=== PATIENT | female | born 1950 | race Caucasian/White ===

== ENCOUNTER 2019-01-27 12:01 | Day surgery (SDC) | payer MEDICARE, OTHER, SELFPAY ==
[2019-01-14 09:46] VITALS: BMI 22.4
[2019-01-27] VITALS (11 sets, daily range): BP systolic 89–130; BP diastolic 41–74; PULSE 72–98; RESP 14–16; TEMP 36.6–37.6; O2SAT 97–100; BMI 21.0
--- NOTE | 2019-01-27 12:45 | DI.RAD.S_ITS ---
PROCEDURE: XR KNEE RT 1TO2V INDICATIONS: post op films TECHNIQUE: 2 view(s) of the knee acquired. COMPARISON: None. FINDINGS: Bones: Patient is status post knee joint arthroplasty. Hardware components are in expected positions. Visualized bony structures are intact. Soft tissues: Overlying postoperative changes are noted. IMPRESSION: Expected postoperative appearance Dictated by: Nic Beal M.D. on 01/28/2019 at 10:40 Approved by: Nic Beal M.D. on 01/28/2019 at 10:40
[2019-01-27] MEDS: ACETAMINOPHEN 325 MG TABLET 975 MG PO ×2 (14:26→21:32)
[2019-01-27] MEDS: PREGABALIN 75 MG CAPSULE PO (14:30)
--- NOTE | 2019-01-27 15:13 | SUR.OPER ---
Supine on padded OR bed. Pillow under head, arms secured on padded armboards <90 degree abduction. Safety belt across torso. Non-operative leg secured with tape over blanket over lower leg. Operative leg secured in DeMayo/Stephen positioner. Foam padded brace at thigh of operative leg.
[2019-01-27] MEDS: APREPITANT 40 MG CAPSULE PO (15:33)
--- NOTE | 2019-01-27 15:38 | PM.PREOP ---
Pre-operative Note Interval Note History & Physical reviewed/Exam performed by Physician: Yes Changes to H&P: No
--- NOTE | 2019-01-27 15:39 | PM.OP.1 ---
Operative Date/Time/Diagnoses Date of procedure: 01/27/19 Time of procedure: 17:23 Pre-op diagnosis: Right knee osteoarthritis Post-op diagnosis: same Procedure & Clinicians Procedure: Right total knee arthroplasty Same procedure as scheduled: Yes Indications: The patient presents today for total knee arthroplasty after failure of conservative treatment. The nature of the procedure including the risks and benefits, alternatives, postoperative course and expected outcome were discussed and all questions answered. Consent was obtained. Operative site confirmed and marked. Surgeon: Ab Bermeo Clam Bed Worker: Can Villanueva Anesthesia Type: General and Local Operative Notes Closure Type: primary Specimen(s): none sent Prosthetic devices, grafts, tissues, transplants, or devices: [employer] Letitia BCS: 4 femoral component, 3 tibial component, 9 mm BCS polyethylene tray and 29 x 7.5 mm round patella Applied: implant(s) Estimated Blood Loss (mL): 50 Blood products transfused: none Tourniquet time (min): 31 Procedure in detail: The patient was taken to the operative suite and placed under general anesthesia. The patient was given prophylactic antibiotics prior to surgery. The patient was also given tranexamic acid, 1 g, just prior to surgery for postoperative hemostasis. The lateral knee was prepped and the joint injected with 20 mL of 1% Lidocaine with epinephrine. The knee was then prepped and draped in usual sterile fashion. The leg was exsanguinated with an Esmarch dressing and the tourniquet raised to 250 torr. A 15 cm anterior incision was made. Next a medial trivector arthrotomy was made. The extensor mechanism was marked to ensure accurate repair. Initial exposing dissection was carried out medially and laterally. The knee was then extended and the patellar thickness was measured and a cut made removing approximately 7-8 mm of bone with a goal of restoring normal patellar thickness. The patella was then sized and drilled. Some excess lateral bone was excised and the patellofemoral ligament released. The tourniquet was then released. The knee was then flexed and the [employer] femoral guide was placed. The anterior pins were placed and the distal rotation holes drilled. The distal cutting guide was placed and the templated distal femoral cut was made. The templating cutting block was then placed and the anterior, posterior and chamfer cuts made. The [employer] tibial guide was placed and the alignment checked along the axis of the proximal tibial with a urbano. The proximal tibial cut was then made with an oscillating saw. All meniscus and bony debris was then removed. Flexion extension gaps were checked. The knee was tight both in flexion and extension. another 2 mm of tibia was resected. The gaps were then adequate for a 9 spacer with good balance medially and laterally. The soft tissues were then injected with a combination of 20 mL of half percent Marcaine with epinephrine and 20 mL of Exparel. The trial components were then placed. The knee went into full extension and flexion beyond 120?. There was excellent medial- lateral balance throughout motion. Patellar tracking was excellent. The trial components were removed and size is confirmed for the final implants. The knee was then exsanguinated with an Esmarch dressing and the tourniquet reapplied for cementing. The knee was cleansed with Pulsavac irrigation and dried. The final components were cemented in with high viscosity vacuum mixed bone cement with antibiotics. The knee was held in extension and the patellar clamp until the cement had adequately cured. The knee was then irrigated with dilute Betadine solution. The extensor mechanism was closed with 5 interrupted #1 Vicryl sutures in 90 degrees of flexion. The joint was then injected with a combination of 1 g of tranexamic acid and 20 mL of quarter percent Marcaine with epinephrine. The subcutaneous tissue was closed with 2-0 Vicryl. The skin was closed with robel and surgical adhesive. An Aquacel dressing and Ld wrap were then applied. Complications: none Condition: stable Disposition: PACU Plan for aftercare: [facility] protocol for total knee arthroplasty.
[2019-01-27] MEDS: CEFAZOLIN 2 GM/100 ML FROZ.PIGGY IV ×2 (15:43→23:39)
[2019-01-27] MEDS: TRANEXAMIC ACID 1,000 MG VIAL 1000 MG INJ (16:00)
[2019-01-27] MEDS: LIDOCAINE 1% W/EPI INJ 20 ML INJ (16:18)
[2019-01-27] MEDS: BUPIVACAINE 0.25% W/ EPI (PF) 20 ML, TRANEXAMIC ACID 1,000 MG, SODIUM CHLORIDE 0.9% 10 ML INJ (16:20)
[2019-01-27] MEDS: BUPIVACAINE 0.25% W/ EPI (PF) 40 ML, BUPIVACAINE LIPOSOME 266 MG, SODIUM CHLORIDE 0.9% ... INJ (16:20)
[2019-01-27] MEDS: POVIDONE-IODINE 15 ML, SODIUM CHLORIDE 0.9% 250 ML TOP (16:21)
[2019-01-27] MEDS: fentaNYL 100 MCG/2 ML INJ 50 MCG IV (17:47)
[2019-01-27] MEDS: LACTATED RINGERS 1,000 ML 125 ML IV (18:48)
[2019-01-27] MEDS: ONDANSETRON 4 MG ODT PO (18:48)
[2019-01-27] MEDS: OXYCODONE IR 5 MG TABLET PO (19:34)
[2019-01-27] MEDS: ASPIRIN EC 81 MG TABLET PO (21:32)
[2019-01-27] MEDS: ONDANSETRON 4 MG/2 ML INJ IV (23:59)
[2019-01-28] MEDS: LACTATED RINGERS 1,000 ML 125 ML IV (02:01)
[2019-01-28 04:44] VITALS: BP 102/44; PULSE 70; RESP 16; TEMP 36.4; O2SAT 97
[2019-01-28 05:22] LABS: Hematocrit 32.9 % (36-46)
[2019-01-28] MEDS: ONDANSETRON 4 MG/2 ML INJ IV (06:10)
[2019-01-28 07:26] VITALS: BP 104/37; PULSE 67; RESP 16; TEMP 36.8; O2SAT 100
[2019-01-28] MEDS: CEFAZOLIN 2 GM/100 ML FROZ.PIGGY IV (08:14)
[2019-01-28] MEDS: NAPROXEN 250 MG TABLET PO (08:29)
[2019-01-28] MEDS: ACETAMINOPHEN 325 MG TABLET 975 MG PO (08:29)
[2019-01-28] MEDS: ASPIRIN EC 81 MG TABLET PO (08:29)
[2019-01-28 08:34] VITALS: PULSE 77; RESP 12; O2SAT 97
--- NOTE | 2019-01-28 09:13 | PM.DS.1 ---
History of Present Illness Date Patient Seen: 01/28/19 Time Patient Seen: 09:14 Chief complaint: [id number] Total Kneee Arthroplasty Narrative: Patient is 68 year old female who is POD#1 s/p right knee arthroplasty. Discharge Providers Date of admission: 01/27/19 12:01 Discharge Date: 01/28/19 Primary care physician: Belen Centeno PA-C Consults: 01/27/19 18:19 Consult to Discharge Planning Routine Comment: Consult to Physical Therapy Evaluate & Treat Comment: Physician Instructions: postop TKA protocol Consult to Respiratory Therapy Evaluate & Treat Comment: Physician Instructions: Evaluate and treat Discharge provider: Cassidy Rodriguez PA-C Summary Discharge Diagnosis: S/p right knee arthroplasty Hospital Course: Indications: The patient presents today for total knee arthroplasty after failure of conservative treatment. The nature of the procedure including the risks and benefits, alternatives, postoperative course and expected outcome were discussed and all questions answered. Consent was obtained. Operative site confirmed and marked. After obtaining informed consent patient was brought to the operating room for right knee arthroplasty. Patient has had no complications and is progressing well on POD#1. She has been up and out of bed to the chair and commode. She has had some post operative nausea that has responded to Zofran and has been tolerating a diet. She reports no problems with voiding. No calf pain, chest pain or shortness of breath. She has a good support system at home and her will be her primary loom fixer supervisor. She has good supply of her post operative medications at home given at decision for surgery visit. She will be discharged to home today pending evaluation by physical therapy. Status at Discharge Cognitive/behavioral status at discharge: oriented Functional status at discharge: uses cane/walker Overall status at discharge: patient is progressing back to baseline Exam Vital Signs (past 8 hours): - 01/28/19 04:44 01/28/19 07:26 01/28/19 08:34 Temperature 97.6 F 98.2 F Pulse Rate 70 67 77 Respiratory Rate 16 16 12 Blood Pressure 102/44 L 104/37 L Pulse Oximetry 97 100 97 Oxygen Delivery Method Room Air Oxygen Flow Rate 0 Narrative Exam Narrative: Pleasant 68 year old female sitting comfortably upright in chair in no acute distress. Alert and oriented. Dressing in place over right knee is C/D/I. Able to freely dorsiflex/plantar flex feet. Intact sensation in bilateral lower extremities. 2+ DP pulses. Objective Labs Result Diagrams: 01/28/19 05:06 Labs: Laboratory Results - last 24 hr 01/27/19 01/28/19 21:00 05:06 Hgb 11.0 L Hct 32.9 L Nasal Screen MRSA (PCR) Negative for mrsa Discharge Plan Discharge Plan Patient Disposition: Home Discharge comment: Discharge to home after PT Discharge Med Rec/Prescriptions Prescriptions: New acetaminophen 325 mg Tablet 975 mg PO TID Qty: 60 RF: 0 aspirin 81 mg Tablet,Delayed Release (Dr/Ec) 81 mg PO BID Qty: 60 RF: 0 oxycodone 5 mg Tablet 5 mg PO Q3HR PRN (Reason: Pain, Moderate (4-6)) Qty: 40 RF: 0 Continued risedronate 35 mg Tablet 35 mg PO QWEEK RF: 0 PreserVision AREDS-2 [phone]-mg Capsule 1 tab PO BID RF: 0 cyanocobalamin (vitamin B-12) [Vitamin B-12] 1,000 mcg Tablet 1,000 mcg PO DAILY RF: 0 fish qlv-xjuik-5-vit C-vit E 2,000-650-12 mg/2.5 gram Emulsion In Packet 1 tab PO DAILY RF: 0 cholecalciferol (vitamin D3) [Vitamin D3] 1,000 unit Capsule 1,000 unit PO DAILY RF: 0 Multi-Day with Iron 18-400 mg-mcg Tablet 1 tab PO DAILY RF: 0 turmeric 400 mg Capsule 1 tab PO BID RF: 0 Glucosamine Chondroitin MaxStr 1,500 mg PO DAILY RF: 0 Discontinued naproxen sodium [Aleve] 220 mg Capsule 220 mg PO BID RF: 0 Follow up/Referrals: Ab Bermeo MD [Physician] - Provider Discharge Instructions Diet: Diet as Tolerated and Regular Activity: Weight bear as tolerated. Follow [employer] guide. Cold/Heat Therapy: Ice pack as needed. Skin/Wound/Dressing Care Dressing: Leave dressing in place. Will be removed at 2 week post op visit. Visit Report/Discharge Packet Instructions: DI for Knee Replacement Discharge Data Primary Care Provider: Belen Mckeon Attending Provider: Ab Bermeo Admit Date/Time: 01/27/19 12:01
--- NOTE | 2019-01-28 10:17 | CM.IDA ---
Initial DCP Assessment Note: Pt is a 68 yo female, resident of [facility]. Pt is POD#1 from her knee surgery by Dr Bermeo. PCP: Belen Centeno Payer: Medicare/[employer]. Reviewed chart, spoke w/ RN and Ortho PA, no barriers expected to safe DC home w/ Keyla. Pt is eager to return home, PT eval pending this morning. Pt using BR during this BABCOCK TESTER's visit; will remain available in case DC needs, questions or concerns arise. DELMI Neves Discharge Planning/Care Management CM Discharge Assessment Start: 01/28/19 10:13 Freq: Status: Active Protocol: Document 01/28/19 10:13 CHRISTI (Rec: 01/28/19 10:17 CHRISTI [id number]) Discharge Planning Assessment Assigned Housing Relocation DELMI Maki DPOA/Assigned Designee Name Keyla Wyatt, spouse Contact Information [phone] Advance Directives? No: Currently working on Advance Directives on File No History Provided By Patient Medical Record Prior Living Arrangements House Household Members spouse Type of transporation used prior to Drives own vehicle admit Independent with ADL's Yes Is patient alert and oriented? Yes Barriers to Discharge No Discharge Plan Home Transportation Arrangement Spouse Referrals Initiated None needed Whiteboard Updated in Patient Room with Yes name and ext. # of Housing Relocation Review Status In Process
--- NOTE | 2019-01-28 11:31 | PT.IIE ---
Current Diagnoses Osteoarthritis of knee, unspecified (01/27/19) Surgery Performed Operation Date: 01/27/19 12:45 Actual Procedures p Total Knee Arthroplasty(Right) - Ab Bermeo MD Surgical History (Last Updated 01/14/19 @ 10:21 by Halima Peters RN) Hx of arthroscopy of right knee (Acute) Hx of right breast biopsy (Acute ~1989) Medical History (Last Updated 01/14/19 @ 10:19 by Halima Peters RN) Cyst near tailbone (Acute) Easy bruisability (Acute) Low back pain (Acute) Neck pain (Acute) Osteoarthritis (Acute) Osteoporosis (Acute) Physical Therapy Inpatient Evaluation/Re-Eval M1 PT/OT-IP Prior Functional Status Start: 01/28/19 11:15 Freq: NEEDED Status: Discharge Protocol: Document 01/28/19 09:50 HH (Rec: 01/28/19 11:31 [id number]) Medical Review Prior Functional Status Medical History Reviewed Yes Diet/Fluid Consistency Full Liquids Communication No deficits noted. Able to make needs known Mobility and Gait Pt was an independent ambulator at home and community. Pt reports difficult time for stair climbing, long distance walk, participating Tachi class since 6 months ago due to worsening R knee pain. She was able to walk 3 miles during the day sometimes Activities of Daily Living and IADL's Independent for all ADLs and IADLs Social History Household Members spouse Living Arrangements House Number of Floors (Floors) One Floor Number of Stairs To Enter/Railing? 2STE without railings Home Environment High Toilet Walk in Shower Home Equipment Front Wheel Walker Straight Cane Hand Held Shower Employment Status Retired Additional Social History Comment Pt is a 68 yo female, resident of [facility] with her Eder. Pt will see outpatient PT starting from 02/02 at [facility]. M2 PT-IP Current Condition Start: 01/28/19 11:15 Freq: NEEDED Status: Discharge Protocol: Document 01/28/19 09:50 HH (Rec: 01/28/19 11:31 [id number]) Physical Therapy Current Condition Current Condition Evaluation Date 01/28/19 Treatment Diagnosis R TKA, Impaired gait and activity tolerance Onset Date 01/27/19 Weight Bearing Status Weight Bearing Status Weight Bear as Tolerated M3 PT-IP Subjective Start: 01/28/19 11:15 Freq: NEEDED Status: Discharge Protocol: Document 01/28/19 09:50 (Rec: 01/28/19 11:31 [id number]) Subjective Physical Therapy Visit Type Type Initial Evaluation Visit Start Time 09:50 Visit Stop Time 10:40 Total Visit Minutes 50 Notes Pt's Eder at bedside for CG training. Pt wants to be d /c today. Per RN, she has been getting OOB with SBA. Number of [facility] BAILIFF Visits 0 Physical Therapy Visit Comments Patient Comments Im doing very good and i want to do PT. Patient Goals To return home and participate outpatient PT at [facility] Pain Assessment Pain When Pain Assessed During Mobility Pain Present Pain Present Pain Reported Location right knee Intensity 4 Scale Used Numeric (1 - 10) Description Acute Pain Behaviors Facial Grimacing Pain Management Techniques Modification of Treatment Re-positioning Timing of Activity with Medications M4 PT-IP Mobility and Gait Start: 01/28/19 11:15 Freq: NEEDED Status: Discharge Protocol: Document 01/28/19 09:50 (Rec: 01/28/19 11:31 [id number]) PT-Bed Mobility Assessment Rolling Type of Rolling Roll to Left Level of Assist Independent Supine to Sit Supine to Sit Independent Sit to Supine Sit to Supine Independent Scooting Scooting to Edge of Bed Independent Scooting Up and Down in Bed Independent PT-Transfer Assessment Sit to and From Stand Sit to and from Stand Independent Use of Upper Extremities Equipment Transfer Assistive Device Gait Belt Front Wheeled Walker Orthotic/Prosthetic Devices or Brace: No Transfers Transfer Destination Bed Chair Transfer Technique Stand Step Pivot Transfer Ability Level of Assist Independent Use of Upper Extremities Comments Mobility Comments Pt was able to supine to long sit and use her LLE to scoot her RLE towards L EOB. She stood up multiple times with stagger stance and a FWW. She also performed transfers with proper hand placements on FWW and chair. Gait Assessment Gait Gait Assistance Required: Standby Assistance Distance (Feet) 90 Able to Maintain Weight Bearing Status Yes During Gait Assistive Devices Assistive Device Gait Belt Front Wheeled Walker Orthotic/Prosthetic Devices or Brace: No Gait Deviations General Gait Pattern Decreased Stride Length Decreased Feet Clearance Step-to Gait Factors Limiting Gait Function Factors Limiting Gait Function Decreased Activity Tolerance Decreased Strength Limited Range of Motion Pain Comments Gait Comments Pt amb from EOB to hallway and returned to bed. She at first c/o lightheadness after 90 feet and requested to return to bed for rest. She states she had that sometimes. BP was stable at 110s/60s which is her baseline. She rest for 5 mins and stated Im good now . She was then then amb to W/ C and to hallway for stair climbing. Pt overall very steady and used step to gait pattern. Stair Climbing Assessment Evaluation Level of Assist On Stairs Standby Assistance Devices Stair Climbing Assistive Devices Right Railing Technique/Endurance Stair Climbing Direction Ascend and Descend Stair Climbing Technique Step to Step Number of Steps Climbed 5 Query Text: Stair Climbing Set # Repetitions (reps) 2 Comments Stair Climbing Comments Use w/c to transport pt to stairways. Instructed pt to lead with LLE during ascending and with RLE during descending. Pt climbed 5steps x 2 with R railing. Steady and no LOB. PT-Balance Assessment Sitting Balance and Reactions Static Sitting Balance Ability Normal Dynamic Sitting Balance Ability Normal Standing Balance and Reactions Static Standing Balance Ability Normal Dynamic Standing Balance Ability Good M5 PT-IP Objective Assessments Start: 01/28/19 11:15 Freq: NEEDED Status: Discharge Protocol: Document 01/28/19 09:50 (Rec: 01/28/19 11:31 [id number]) Orientation Orientation/Cognition Level of Alertness Alert Orientation Name Age Birthday Month Date Year Day of Week Place Situation Language Function Ability No Deficits Noted Safety Awareness Understands Safety Issues Gross Range of Motion Upper Extremity ROM Assessment Within Functional Limits Lower Extremity ROM Assessment Right Impaired Impairments 8 degrees to 90 for knee AROM Strength Upper Extremity Strength Assessment Within Functional Limits Lower Extremity Strength Assessment Right Impaired Knee 3/5 Coordination Assessment Gross Coordination Gross Coordination WNL Sensation Assessment Sensation Gross Sensation WNL Light Touch Intact Proprioception (Position) Intact Muscle Tone Muscle Tone WNL Yes M6 PT-IP Treatment Start: 01/28/19 11:15 Freq: NEEDED Status: Discharge Protocol: Document 01/28/19 09:50 (Rec: 01/28/19 11:31 [id number]) Physical Therapy Treatment Exercises Exercises Ankle Pumps Gluteal Sets Quad Sets Heel Slides Straight Leg Raises Education Education Provided Precautions Weight Bearing Status Post-Op Packet Safety Other Treatments Other Treatment Performed standing R TKE M7 PT-IP Assessment and Plan Start: 01/28/19 11:15 Freq: NEEDED Status: Discharge Protocol: Document 01/28/19 09:50 HH (Rec: 01/28/19 11:31 HH [id number]) PT Summary Assessment and Plan Potential Rehabilitation Potential Excellent Status of Condition at Evaluation Stable Summary Impairments Pain ROM Strength Bed Mobility Transfers Gait Activity Tolerance Progress Towards Goals Safe For Discharge Assessment Summary Pt is a 68 yo female POD#1 from her knee surgery by Dr Bermeo. Pt is low complexity and eval only. She was able to perform bed mob, transfer and stair climbing safely with mod ind and SBA for stair negotiation. Her Eder attended session who is also very active and available to assist as needed at home. Adjusted walker height, therex booklet, stair climbing techniques were given during session. Pt is safe for discharge to home with 's assistance and outpatient PT to improve mobility at this point Frequency of Treatment Frequency Of Treatment Discharge Discharge Recommendations PT Discharge Recommendations Home with Assistance Outpatient PT Equipment Needed for Home Before shower seat Discharge
== END 2019-01-28 11:00 | disposition home or self-care (01) ==
LOC: AC 12:09 → ICU 14:23 → AC 01-28 12:29 → OR 01-28 12:29
PROVIDERS: Visit Provider Orthopaedic Surgery
PROC: 0SRC0JZ Replacement of Right Knee Joint with Synthetic Substitute, Open Approach (ICD-10-PCS; CPT 27447; principal; 2019-01-27 12:45)
DX: M17.11 Unilateral primary osteoarthritis, right knee (principal)
CPT/HCPCS: 27447; 36415; 73560; 85014; 85018; 87797; 94760; 97161; 97530; C1776; C9290; J0690; J1100; J2250; J2405; J2704; J3010; J8501